=== PATIENT | male | born 1950 | race African-American/Black ===

== ENCOUNTER 2023-01-31 20:31 | Emergency (ER) | payer OTHER ==
[~2023-01-31] VITALS: Ht 175.3 cm; Wt 81.6 kg
[2023-01-31 20:31] VITALS: BP 145/90; PULSE 77; RESP 17; TEMP 97.5; O2SAT 95
--- NOTE | 2023-01-31 20:31 | NUR ---
TO JAMES MCNULTY FOR PREBOOK
[2023-01-31 20:41] VITALS: BP 145/90; PULSE 77; RESP 17; TEMP 97.5; O2SAT 95
--- NOTE | 2023-01-31 20:44 | NUR ---
Kimberly moreira in [facility] - 01/31/23 at 2044 by OLMAN ROLL CONTOUR GRINDER ZAPATA AT [facility]
--- NOTE | 2023-01-31 20:44 | NUR ---
SEEN AND EXAMINED BY PA ZAPATA.
--- NOTE | 2023-01-31 20:52 | NUR ---
PATIENT BIB [employer]. PATIENT EXAMINED BY PA. PATIENT MEDICALLY CLEARED AND RELEASED IN CUSTODY IN STABLE CONDITION. ORIGINAL PRE-BOOK FORM GIVEN TO OFFICER PHILIPPE Elizabeth. Patient discharged with v/s stable. Written and verbal after care instructions given and explained. Patient verbalized understanding. Ambulatory with in custody. All questions addressed prior to discharge. Advised to follow up with PMD.
== END 2023-01-31 20:52 ==
LOC: MED 20:31
DX: F10.129 Alcohol abuse with intoxication, unspecified (principal); V89.2XXA Person injured in unspecified motor-vehicle accident, traffic, initial encounter; Y93.89 Activity, other specified; Y92.89 Other specified places as the place of occurrence of the external cause; Y99.8 Other external cause status
CPT/HCPCS: 99283